=== PATIENT | female | born 1980 | race Caucasian/White ===

== ENCOUNTER 2022-05-31 12:43 | Emergency (ER) | payer BC, SELFPAY ==
[2022-05-31 12:46] VITALS: BP 116/79; PULSE 58; RESP 16; TEMP 36.5; O2SAT 100
[2022-05-31] MEDS: ONDANSETRON INJ 4 MG/2 ML VIAL IV PUSH (13:45)
[2022-05-31] MEDS: SODIUM CHLORIDE 0.9% IV 1,000 ML 999 ML IV CONT (13:45)
--- NOTE | 2022-05-31 13:48 | ED.NAVMDI ---
HPI - Nausea/Vomiting/Diarrhea General Chief complaint: Nausea/Vomiting/Diarrhea Stated complaint: vomiting Time Seen by Provider: 05/31/22 13:04 History of Present Illness HPI Narrative: Patient is a 41-year-old female who presents ER with concerns for dehydration. Patient reports she woke this morning feeling unwell. She started having nausea and vomiting diarrhea. She has had 5 episodes of diarrhea. No blood in her emesis or stool. No known sick contacts. No abdominal pain. Mild aching headache. Related Data Home Medications Medication Instructions Recorded Confirmed cholecalciferol (vitamin D3) 10 10 mcg PO DAILY 07/06/20 04/03/22 mcg/drop (400 unit/drop) oral drops cyanocobalamin (vitamin B-12) 1,000 mcg PO DAILY 07/06/20 04/03/22 1,000 mcg capsule Allergies Allergy/AdvReac Type Severity Reaction Status Date / Time hydrocodone AdvReac Intermediate Nausea and Verified 05/31/22 12:50 Vomiting Review of Systems Review of Systems: All systems reviewed & are unremarkable except as noted in HPI and below Constitutional: Constitutional: Denies chills, Reports fatigue and Denies fever(s) ENT: Denies nasal congestion and Denies sore throat Cardiovascular: Cardiovascular: Denies chest pain, Denies rapid heart rate and Denies radiating jaw, neck or arm pain Respiratory: Respiratory: Denies cough and Denies dyspnea Gastrointestinal: Gastrointestinal: Denies abdominal pain, Reports bloating, Reports diarrhea, Reports nausea and Reports vomiting Genitourinary: Genitourinary: Denies nocturia and Denies dysuria [facility] Past Medical History Medical History (Updated 05/31/22 @ 15:36 by Bernabe Tran MD) Reji's disease Hypothyroidism Migraines Surgical History Surgical History (Updated 05/31/22 @ 13:54 by Bernabe Tran MD) No pertinent past surgical history Family History Family History Grandparent Family history of thyroid disease Carcinoma of colon Family history of osteoporosis Asthma Cerebrovascular accident Diabetes mellitus Father Asthma Family history of malignant neoplasm of thyroid Thyroid ca Mother Family history of elevated blood lipids Family history of coronary artery disease Asthma Family history of alcoholism Myocardial infarct Other COPD (chronic obstructive pulmonary disease) Social History Social History (Reviewed 05/11/22 @ 11:31 by Jessica Elena [facility] Smoking status: Never smoker Second hand tobacco smoke exposure: No Alcohol intake: current Exam Narrative: GENERAL: Well-appearing, well-nourished, and in no acute distress. HEAD: Normocephalic, atraumatic. CHEST: Clear to auscultation. No respiratory distress. HEART: Regular rate and rhythm. Normal peripheral pulses. ABDOMEN: Soft, nontender, nondistended. EXTREMITIES: Normal range of motion. No edema. SKIN: Warm, dry, no rash. NEURO: Alert and oriented x3. PSYCH: Normal mood and affect. Course Course Emergency Course: Patient informed results. Resting comfortably. Hydrated. Discharge home. Vital Signs Vital signs: Vital Signs Temperature 97.7 F 05/31/22 12:46 Pulse Rate 58 L 05/31/22 12:46 Respiratory Rate 16 05/31/22 12:46 Blood Pressure 116/79 05/31/22 12:46 Pulse Oximetry 100 05/31/22 12:46 Oxygen Delivery Room Air 05/31/22 12:46 Temperature 97.7 F 05/31/22 12:46 Pulse Rate 58 L 05/31/22 12:46 Respiratory Rate 16 05/31/22 12:46 Blood Pressure 116/79 05/31/22 12:46 Pulse Oximetry 100 05/31/22 12:46 Oxygen Delivery Room Air 05/31/22 12:46 MDM - Nausea/Vomiting/Diarrhea Lab Data Result diagrams: 05/31/22 13:41 05/31/22 13:41 Labs: Lab Results 05/31/22 05/31/22 Range/Units 13:41 13:41 WBC 9.6 (4.5-10.0) K/mm3 RBC 4.67 (4.2-5.4) M/mm3 Hgb 11.9 L (12.0-15.0) g/dL Hct 37.8 (37.0-47.0) % MCV 8
[2022-05-31 14:00] LABS: Basophils Absolute Auto 0.1 K/mm3 (0.0-0.1); Basophils Percent Auto 0.5 % (0.2-1.2); Eosinophils Percent Auto 0.1 % (0-4.4); Hematocrit 37.8 % (37.0-47.0); Hemoglobin 11.9 g/dL (12.0-15.0); Immature Granulocyte Absolute 0.04 K/mm3 (0.00-0.031); Immature Granulocyte Percent A 0.4 % (0-0.5); Lymphocytes Absolute Auto 0.76 K/mm3 (0.9-3.2); Lymphocytes Percent Auto 7.9 % (18.3-44.2); Mean Corpuscular HGB Conc 31.5 g/dl (32-36); Mean Corpuscular Hemoglobin 25.5 pg (26-34); Mean Corpuscular Volume 80.9 fl (80-100); Mean Platelet Volume 9.9 fl (7.4-10.4); Monocytes Absolute Auto 0.3 K/mm3 (0.1-0.6); Monocytes Percent Auto 2.6 % (2.6-8.5); Neutrophils Absolute Auto 8.5 K/mm3 (1.3-6.7); Neutrophils Percent Auto 88.5 % (45.5-73.1); Platelet Count Result 268 k/mm3 (150-375); Red Blood Count 4.67 M/mm3 (4.2-5.4); Red Cell Distribution Width 14.5 % (11.5-14.5); White Blood Count 9.6 K/mm3 (4.5-10.0)
[2022-05-31 14:08] LABS: Alanine Aminotransferase 18 U/L (6-35); Albumin Level 4.5 g/dL (3.5-5.1); Alkaline Phosphatase 53 U/L (38-126); Anion Gap 6 mmol/L (8-16); Aspartate Amino Transferase 32 U/L (14-36); Bilirubin,Total 0.4 mg/dL (0.2-1.3); Blood Urea Nitrogen 13 mg/dL (7-17); Calcium 8.6 mg/dL (8.4-10.2); Carbon Dioxide 24 mmol/L (22-30); Chloride 103 mmol/L (98-107); Estimated CRCL calculation 72 ml/min; Estimated Glomerular Filt Rate > 60; Glucose 103 mg/dL (65-110); Potassium 4.1 mmol/L (3.4-5.0); Sodium 133 mmol/L (137-145)
[2022-05-31 15:48] VITALS: PULSE 60; RESP 16; O2SAT 100
== END 2022-05-31 15:49 | disposition home or self-care (01) ==
PROVIDERS: Emergency Provider Emergency Medicine; PCP Internal Medicine
DX: K52.9 Noninfective gastroenteritis and colitis, unspecified (principal); E06.3 Autoimmune thyroiditis; E03.9 Hypothyroidism, unspecified
CPT/HCPCS: 36415; 80053; 85025; 96361; 96374; 99284; J2405; J7030